=== PATIENT | female | born 1950 | race Caucasian/White ===

== ENCOUNTER 2024-02-19 21:12 | Emergency (ER) | payer MEDICARE, OTHER, SELFPAY ==
[2024-02-19 21:16] VITALS: BP 178/94
[2024-02-19 21:36] LABS: % Basophils 1.2 % (0-2); % Eosinophils 3.8 % (0-6); % Immature Granulocytes 0.3 % (0-0.5); % Lymphocytes 29.3 % (20.5-51.1); % Monocytes 5.6 % (1.7-9.3); % Neutrophils 59.8 % (42.2-75.2); Absolute Basophils 0.1 10^3/uL (0-0.2); Absolute Eosinophils 0.3 10^3/uL (0-0.7); Absolute Lymphocytes 2.2 10^3/uL (1.2-3.4); Absolute Monocytes 0.4 10^3/uL (0.1-0.6); Absolute Neutrophils 4.5 10^3/uL (1.4-6.5); Hematocrit 38.9 % (37.0-47.0); Hemoglobin 13.5 g/dL (12.0-16.0); Mean Corp Hgb Conc. 34.7 g/dL (33.0-37.0); Mean Corpuscular Hgb 29.9 pg (27.0-31.0); Mean Corpuscular Volume 86.1 fL (81.0-99.0); Mean Platelet Volume 9.7 fL (7.4-10.4); Nucleated Red Blood Cells % 0 %; Platelet Count 288 10^3/uL (130-400); Red Blood Cell Count 4.52 10^6/uL (4.20-5.40); Red Cell Dist. Width 12.8 % (11.5-14.5); White Blood Cell Count 7.4 10^3/uL (4.8-10.8)
[2024-02-19 21:48] LABS: ALT (SGPT) 20 U/L (0-35); AST (SGOT) 24 U/L (14-36); Albumin 4.5 g/dl (3.5-5.0); Alkaline Phosphatase 110 U/L (38-126); Blood Urea Nitrogen 22 mg/dl (7-17); Calcium 9.6 mg/dl (8.4-10.2); Carbon Dioxide 27 mmol/L (22-30); Chloride 106 mmol/L (98-107); Glucose 123 mg/dl (70-99); Potassium 4.1 mmol/L (3.5-5.1); Sodium 139 mmol/L (135-145); Total Bilirubin 0.4 mg/dl (0.2-1.3); Total Protein 7.3 g/dl (6.3-8.2); eGFR 53.72
[2024-02-19 22:01] LABS: Troponin I < 0.012 ng/ml
[2024-02-19 22:29] VITALS: BP 152/76
--- NOTE | 2024-02-19 22:53 | ED.GENMED ---
History of Present Illness
General
Chief Complaint: Blood Pressure Problem
Source: patient
Exam Limitations: none
Time Seen by Provider: 02/19/24 22:23
History of Present Illness
History of Present Illness:
This is a 73 year old female that comes in with c/o chest pain. States that she started on Tuesday when she was driving home form work with chest tightness. States that over the weekend she has had this a couple of times. Then tonight it would not go
away. States that the sharp pain comes and goes but the Tightness is constant. States that her BP at home was 181/80. States that she had increased discomfort with deep breathing. Denies any fever, chills, SOB, abd pain, nausea, vomiting, diarrhea,
headache, dizziness, urinary burning.
Past History
Past History
ED Past Medical History: Cancer (Skin CA), Hypercholesterolemia, Hypothyroidism and Other (Bleeding Ulcers)
ED Past Surgical History: Gynecological (D&C) and Other (Parathyroidectomy, )
Social History
Tobacco: Former smoker
Alcohol: None
Personal:
Living: with family
Review of Systems
Review of Systems
All Other Systems: ROS reviewed and negative except as documented in HPI and ROS
Constitutional: Reports no symptoms; Denies fever or chills
EENT: Reports no symptoms
Respiratory: Reports no symptoms; Denies cough or trouble breathing
Cardiac: Reports chest pain
ABD/GI: Reports no symptoms; Denies abdominal pain, nausea, vomiting or diarrhea
: Reports no symptoms; Denies dysuria, frequency or urgency
Musculoskeletal: Reports no symptoms
Skin: Reports no symptoms
Neurological: Reports no symptoms; Denies dizzy or headache
Psychiatric: Reports no symptoms
Phy Exam
General Physical Exam
General Presentation: mild distress
General age: appears stated age
General Skin: warm and dry
General Habitus: elderly
General Mental: alert
General Hydration: appears well hydrated
ENT Exam
ENT Exam: TM's normal, pharynx normal and neck supple
Eye Exam
Eye Exam: EOMI
Cardiovascular Exam
Cardiovascular Exam: regular rate/rhythm, no edema, no murmur and normal peripheral pulses
Pulmonary Exam
Pulmonary Exam: lungs clear, no respiratory distress, no rales, chest non tender, no crackles, no rhonchi, no wheezing, no cough and other (Pain under left breast with deep breathing)
Gastrointestinal Exam
Gastrointestinal Exam: normal bowel sounds, non tender, soft, no organomegaly, no pulsatile mass and non distended
Musculoskeletal Exam
Musculoskeletal Exam: full ROM and no edema
Skin Exam
Skin Exam: normal color, warm/dry, no rash and no petechia
Psychiatric Exam
Psychiatric Exam: normal mood/affect
Course
Orders/Labs/Results
Orders:
Orders
02/19/24 21:15
Electrocardiogram (*1) Urgent
Reason for Study: Chest Pain
EKG- Treatment ONCE
02/19/24 21:31
CMP [Comprehensive Metabolic Panel] Urgent
Complete Blood Count/With Diff Urgent
Troponin I Urgent
02/19/24 22:52
EKG- Treatment ONCE
02/19/24 22:53
Nitroglycerin Sublingual [Nitrostat (Sublingual)] 0.4 mg SL [id number] PRN
CR Chest - 2 Views Urgent
Comment:
Reason For Exam: Chest pain
02/19/24 23:19
D-Dimer Urgent
02/20/24 00:30
Electrocardiogram (*1) Urgent
Reason for Study: Chest Pain
Other Reason for Exam: with Repeat Troponin
02/20/24 00:43
Troponin I Urgent
02/20/24 01:23
Ketorolac [Toradol] 30 mg IV NOW STA
Abnormal Lab Results
02/19/24
21:31
BUN 22 H mg/dl
(7-17)
Creatinine 1.1 H mg/dL
(0.6-1.0)
Glucose 123 H mg/dl
(70-99)
02/19/24 21:31
02/19/24 21:31
Dehydration. Glucose nonfasting. Troponin <0.012
Second Troponin <0.012. D-dimer 0.27
Vital Signs
Initial and Last Documented VS:
Initial Vital Signs
Pulse Resp BP Pulse Ox
90 24 178/94 97
02/19/24 21:16 02/19/24 21:16 02/19/24 21:16 02/19/24 21:16
Last Documented Vital Signs
Temp Pulse Resp BP Pulse Ox
98.1 F 77 17 138/85 97
02/19/24 23:19 02/20/24 01:30 02/20/24 01:30 02/20/24 01:32 02/20/24 01:30
MDM/Problems Addressed
Differential Diagnosis Includes:
PE, Coronary syndrome
MDM/Problems Addressed:
This is a 73 year old female that comes in with c/o chest pain. States that she has chest pressure and a sharp pain on the left. States that the sharp pain comes and goes but the pressure is constant. States that this started on Tuesday and she has
had this a few times over the weekend. Tonight the pain would just not go away.
Will get labs, Chest x-ray. ECG.
Back into see patient. Explained that her both Troponin are normal along with the D-dimer. Chest x-ray is normal. Will give patient IV Toradol as she continues with the chest tightness. Patient refused nitro earlier. Will recheck.
Nursing into see patient and patient states that she is ready to go home. Will place patient on the Cardiology hot like for further evaluation. Patient to return with increased pain, or any other concerns.
Chronic conditions affecting care:
NA
Acute Exacerbation and/or Progression of Chronic Illness:
NA
*Radiology
Radiology exam reviewed: preliminary read by ED provider (Chest- Negative for active disease. )
*Pulse Oximetry
Patient hypoxic: no
*EKG
Interpreted by ED Provider?: Yes
Heart Rate: 97
Rate: normal
Rhythm: sinus
[place]: normal axis
Interval: normal interval
QRS Pattern: normal QRS
Ischemia: no ischemia
*Account Development Manager Interpretation
Rate: normal
Heart Rate: 80
Rhythm: sinus
*Critical Care Note
Total Time (30-74mins, 75-104mins- exclusive of procedures): Not Applicable
ED Attending Note
-
Portions of this chart may have been created with voice recognition software.� Occasional wrong word or��sound alike� substitutions may have occurred due to the inherent limitations of voice recognition software.
Discharge Plan
Departure
Patient Disposition: Home (Routine Discharge)
Date of Disposition: 02/20/24
Time of Disposition: 01:56
Patient with high blood pressure during this ER visit?: Yes
Condition: Good
Covid-19: Not Applicable
Discharge Problem:
Chest pain
Instructions: Chest Pain CBC Follow Up, BLOOD PRESSURE
Prescriptions:
No Action
garlic 100 mg Tablet
100 mg PO DAILY
irbesartan [Avapro] 75 mg Tablet
75 mg PO DAILY
cholecalciferol (vitamin D3) [Vitamin D3] 10 mcg (400 unit) Capsule
10 mcg PO DAILY
One-Per-Day Gatzke-3 684-1,200 mg Capsule,Delayed Release(Dr/Ec)
1 cap PO DAILY
magnesium glycinate 100 mg Tablet
200 mg PO DAILY
Calcium With Vitamin D3 500 mg(1,250mg) -50 unit Capsule
1 cap PO DAILY
Prolia 60 mg/mL Syringe
60 mg SC [id number]
Probiotic with Prebiotic 1 billion-250 cell-mg Capsule
1 cap PO DAILY
turmeric root-aryan root ext 150-25 mg Tablet,Chewable
1 tab PO DAILY
Rx Instructions:
Patient takes 600mg
Diazepam Gel
5 mg GA DAILY PRN (Reason: pelvic floor )
Referrals:
Maribeth Jauregui CRNP [Family Provider] -
Activity Restrictions/Additional Instructions:
As discussed, your blood work shows slight Dehydration. Please increase your water intake to 8-8oz glasses daily. Your Both Troponin which are specific for the heart are normal and your D-dimer is negative. Your chest x-ray is normal. You have been
place on the Cardiology hot line. This means that the [facility] office will call you the next business day for further evaluation. IF YOU HAVE INCREASED OR CHANGING PAIN, OR YOU HAVE ANY OTHER CONCERNS PLEASE RETURN TO THE EMERGENCY ROOM.
Interventions
Interventions:
*Risk Screen - Suicide Last Done: 02/19/24 21:16
*Neglect/Abuse Screening Last Done: 02/19/24 21:16
Discharge Date and Time
Print Language: CHILEAN
[2024-02-19 23:00] VITALS: BP 142/79
[2024-02-19 23:40] LABS: D-Dimer 0.27 ug/mlFEU (0.00-0.50)
[2024-02-20 01:18] LABS: Troponin I < 0.012 ng/ml
[2024-02-20] MEDS: TORADOL 30 MG IV (01:29)
[2024-02-20 01:31] VITALS: BP 138/85
[2024-02-20 01:32] VITALS: BP 138/85
[2024-02-20 02:00] VITALS: BP 134/77
== END 2024-02-20 02:07 | disposition home or self-care (01) ==
LOC: EMR 21:12
PROVIDERS: Clinical Nurse Specialist Family Health; Emergency Medicine; EMERGENCY PHYSICIAN Emergency Medicine; FAMILY PHYSICIAN Nurse Practitioner
DX: R07.89 Other chest pain (principal); E78.00 Pure hypercholesterolemia, unspecified; E03.9 Hypothyroidism, unspecified; E86.0 Dehydration; Z85.828 Personal history of other malignant neoplasm of skin; Z87.891 Personal history of nicotine dependence
CPT/HCPCS: 99283; 96374; 71046; 80053; 84484; 85025; 85379; 93005

== ENCOUNTER → 2024-02-27 10:17 | Outpatient (REF) | payer MEDICARE, OTHER, SELFPAY | LOC: RCS 10:17 | PROVIDERS: ATTENDING PHYSICIAN Internal Medicine Cardiovascular Disease; FAMILY PHYSICIAN Nurse Practitioner | DX: R07.2 Precordial pain (principal) | CPT/HCPCS: 93017 ==

== ENCOUNTER → 2024-03-02 07:05 | Outpatient (REF) | payer MEDICARE, OTHER, SELFPAY | LOC: HWRCS 07:05 | PROVIDERS: ATTENDING PHYSICIAN Internal Medicine Cardiovascular Disease; FAMILY PHYSICIAN Nurse Practitioner | DX: R07.2 Precordial pain (principal) | CPT/HCPCS: 93306 ==